=== PATIENT | male | born 1955 | race Caucasian/White ===

== ENCOUNTER → 2017-12-02 18:48 | Outpatient (CLI) | payer SELFPAY | PROVIDERS: Visit Provider Nurse Practitioner Adult Health | DX: R82.99 Other abnormal findings in urine (principal) | CPT/HCPCS: 87086 ==

== ENCOUNTER → 2020-07-04 14:52 | Outpatient (CLI) | payer OTHER, SELFPAY ==
[2020-07-04 16:03] LABS: PSA,Total - Annual Screen 0.24 ng/mL (0.00-4.00)
== END ==
PROVIDERS: PCP Family Medicine; Referring Provider Urology; Visit Provider Urology
DX: Z12.5 Encounter for screening for malignant neoplasm of prostate (principal)
CPT/HCPCS: 36415; 84153; G0103

== ENCOUNTER → 2023-08-23 | Outpatient (CLI) | payer BC, MEDICARE, SELFPAY ==
[2023-08-23 17:19] LABS: PSA,Total - Annual Screen 0.22 ng/mL (0.00-4.00)
== END | disposition home or self-care (01) ==
LOC: LAB 16:08
PROVIDERS: PCP Family Medicine; Referring Provider Nurse Practitioner; Visit Provider Nurse Practitioner
DX: Z12.5 Encounter for screening for malignant neoplasm of prostate (principal)
CPT/HCPCS: 36415; 84153; G0103